=== PATIENT | female | born 1960 | race Caucasian/White ===

== ENCOUNTER 2025-04-15 09:51 | Outpatient (REF) | payer MEDICARE, MEDICAID, SELFPAY ==
[2025-04-15 09:58] LABS: Abs Immature Grans 0.24 10^3/uL (0.0-0.06); HCT 35.3 % (36.0-46.0); HGB 11.5 g/dL (11.2-15.7); Immature Grans % 3.8 %; MCH 29.5 pg (27.0-33.0); MCHC 32.6 % (32.0-36.0); MCV 91 fL (80-95); MPV 10.2 fL (8.0-11.0); Platelet Count 111 10^3/uL (130-400); RBC 3.90 10^6/uL (3.93-5.22); RDW 13.0 % (11.7-14.6); RDW-SD 42.5 fL; WBC 6.27 10^3/uL (4.4-10.8)
[2025-04-15 10:30] LABS: ALT 31 U/L (14-59); AST 30 U/L (15-37); Albumin 2.8 g/dL (3.4-5.0); Alkaline Phosphatase 65 U/L (46-116); Anion Gap 2.3 mmol/L (3-11); BUN 24 mg/dL (7-18); Bilirubin, Total 1.7 mg/dL (0.2-1.0); CO2 42.7 mmol/L (21.0-32.0); Calcium 9.5 mg/dL (8.5-10.1); Chloride 96 mmol/L (98-107); Estimated GFR 81.72 (mL/min/1.73m2); Glucose 142 mg/dL (74-106); Sodium 141 mmol/L (136-145); Total Protein 6.2 g/dL (6.4-8.2)
[2025-04-15 10:43] LABS: Potassium 2.5 mmol/L (3.5-5.1)
[2025-04-16 13:50] LABS: CA 19-9 2335 U/mL (<35)
== END 2025-04-15 09:52 | disposition home or self-care (01) ==
LOC: LBN 09:51
PROVIDERS: PCP Internal Medicine; Visit Provider Internal Medicine Hematology & Oncology
DX: C25.9 Malignant neoplasm of pancreas, unspecified (principal)
CPT/HCPCS: 80053; 85025; 86301

== ENCOUNTER 2025-04-29 00:40 | Outpatient (RCR) | payer MEDICARE, MEDICAID, SELFPAY ==
[2025-04-08 13:01] LABS: Abs Immature Grans 0.13 10^3/uL (0.0-0.06); HCT 36.9 % (36.0-46.0); HGB 11.9 g/dL (11.2-15.7); Immature Grans % 1.8 %; MCH 29.8 pg (27.0-33.0); MCHC 32.2 % (32.0-36.0); MCV 93 fL (80-95); MPV 9.7 fL (8.0-11.0); Platelet Count 161 10^3/uL (130-400); RBC 3.99 10^6/uL (3.93-5.22); RDW 13.1 % (11.7-14.6); RDW-SD 44.0 fL; WBC 7.42 10^3/uL (4.4-10.8)
[2025-04-08] MEDS: Normal Saline Flush 10 ML SYR IVP (13:07)
[2025-04-08 13:12] LABS: ALT 26 U/L (14-59); AST 34 U/L (15-37); Albumin 2.9 g/dL (3.4-5.0); Alkaline Phosphatase 64 U/L (46-116); Anion Gap 0.1 mmol/L (3-11); BUN 21 mg/dL (7-18); Bilirubin, Total 1.2 mg/dL (0.2-1.0); CO2 44.9 mmol/L (21.0-32.0); Calcium 9.9 mg/dL (8.5-10.1); Chloride 96 mmol/L (98-107); Estimated GFR 95.92 (mL/min/1.73m2); Glucose 129 mg/dL (74-106); Sodium 141 mmol/L (136-145); Total Protein 6.7 g/dL (6.4-8.2)
[2025-04-08 13:16] LABS: Potassium 2.4 mmol/L (3.5-5.1)
[2025-04-09 10:00] LABS: CA 19-9 2276 U/mL (<35)
[2025-04-22 11:01] LABS: Abs Immature Grans 0.42 10^3/uL (0.0-0.06); HCT 31.0 % (36.0-46.0); HGB 10.2 g/dL (11.2-15.7); MCH 29.7 pg (27.0-33.0); MCHC 32.9 % (32.0-36.0); MCV 90 fL (80-95); MPV 9.6 fL (8.0-11.0); Platelet Count 417 10^3/uL (130-400); RBC 3.44 10^6/uL (3.93-5.22); RDW 14.4 % (11.7-14.6); RDW-SD 45.3 fL; WBC 8.15 10^3/uL (4.4-10.8)
[2025-04-22] MEDS: Normal Saline Flush 10 ML SYR IVP (11:12)
[2025-04-22 11:21] LABS: Immature Grans % 0.0 %; Polychromasia Present
[2025-04-22 12:07] LABS: Abs Immature Grans 0.51 10^3/uL (0.0-0.06); HCT 31.6 % (36.0-46.0); HGB 10.5 g/dL (11.2-15.7); Immature Grans % 5.8 %; MCH 30.0 pg (27.0-33.0); MCHC 33.2 % (32.0-36.0); MCV 90 fL (80-95); MPV 9.4 fL (8.0-11.0); Platelet Count 407 10^3/uL (130-400); RBC 3.50 10^6/uL (3.93-5.22); RDW 14.5 % (11.7-14.6); RDW-SD 45.5 fL; WBC 8.76 10^3/uL (4.4-10.8)
[2025-04-22 12:12] LABS: Polychromasia Present
[2025-04-22 12:30] LABS: ALT 29 U/L (14-59); AST 27 U/L (15-37); Albumin 2.5 g/dL (3.4-5.0); Alkaline Phosphatase 80 U/L (46-116); Anion Gap 6.1 mmol/L (3-11); BUN 11 mg/dL (7-18); Bilirubin, Total 0.8 mg/dL (0.2-1.0); CO2 33.9 mmol/L (21.0-32.0); Calcium 8.9 mg/dL (8.5-10.1); Chloride 100 mmol/L (98-107); Estimated GFR 81.21 (mL/min/1.73m2); Glucose 106 mg/dL (74-106); Sodium 140 mmol/L (136-145); Total Protein 5.6 g/dL (6.4-8.2)
[2025-04-22 12:43] LABS: Potassium 2.9 mmol/L (3.5-5.1)
[2025-04-22 19:26] LABS: CA 19-9 2032 U/mL (<35)
[2025-04-29] MEDS: Normal Saline Flush 10 ML SYR IVP (12:35)
[2025-04-29 13:10] LABS: Abs Immature Grans 0.41 10^3/uL (0.0-0.06); HCT 30.3 % (36.0-46.0); HGB 9.9 g/dL (11.2-15.7); Immature Grans % 4.9 %; MCH 29.7 pg (27.0-33.0); MCHC 32.7 % (32.0-36.0); MCV 91 fL (80-95); MPV 9.6 fL (8.0-11.0); Platelet Count 306 10^3/uL (130-400); RBC 3.33 10^6/uL (3.93-5.22); RDW 14.2 % (11.7-14.6); RDW-SD 46.5 fL; WBC 8.29 10^3/uL (4.4-10.8)
[2025-04-29 13:38] LABS: ALT 32 U/L (14-59); AST 31 U/L (15-37); Albumin 2.4 g/dL (3.4-5.0); Alkaline Phosphatase 82 U/L (46-116); Anion Gap 6.9 mmol/L (3-11); BUN 11 mg/dL (7-18); Bilirubin, Total 0.7 mg/dL (0.2-1.0); CO2 30.1 mmol/L (21.0-32.0); Calcium 9.1 mg/dL (8.5-10.1); Chloride 102 mmol/L (98-107); Estimated GFR 81.21 (mL/min/1.73m2); Glucose 106 mg/dL (74-106); Potassium 3.9 mmol/L (3.5-5.1); Sodium 139 mmol/L (136-145); Total Protein 5.9 g/dL (6.4-8.2)
[2025-04-30 12:17] LABS: CA 19-9 1391 U/mL (<35)
== END 2025-05-04 23:59 | disposition home or self-care (01) ==
LOC: INF 00:40
PROVIDERS: PCP Internal Medicine; Visit Provider Internal Medicine Hematology & Oncology
DX: C25.9 Malignant neoplasm of pancreas, unspecified (principal); E83.42 Hypomagnesemia; Z45.2 Encounter for adjustment and management of vascular access device
CPT/HCPCS: 36591; 80053; 83735; 85025; 86301